=== PATIENT | male | born 1960 | race Caucasian/White ===

== ENCOUNTER 2018-11-01 10:20 | Outpatient (CLI) | payer MEDICAID, SELFPAY ==
--- NOTE | 2018-11-01 13:55 | DI.RAD_ITS ---
SYMPTOMS/DIAGNOSIS: COUGH X 1 MO AND WHEEZING, R05 CHEST X-RAY, PA AND LATERAL: Comparison is 09/13/17. The heart is normal in size. The lungs are clear. The mediastinal structures and pleura appear intact. IMPRESSION: Normal chest.
== END 2018-11-01 10:40 ==
PROVIDERS: PCP Internal Medicine; Visit Provider Nurse Practitioner Family
DX: R05 Cough (principal); R06.2 Wheezing
CPT/HCPCS: 71046

== ENCOUNTER 2018-12-12 16:27 | Outpatient (REF) | payer MEDICAID, SELFPAY ==
[2018-12-12 20:55] LABS: BUN 14 mg/dL (7-18); CREATININE 1.23 mg/dL (0.70-1.30)
== END 2018-12-12 16:47 ==
LOC: NCHCN 16:27
PROVIDERS: PCP Internal Medicine; Visit Provider Internal Medicine
DX: J02.9 Acute pharyngitis, unspecified (principal)
CPT/HCPCS: 84520; 82565

== ENCOUNTER 2018-12-16 00:37 | Outpatient (CLI) | payer MEDICAID, SELFPAY ==
[2018-12-16] MEDS: Omnipaque 350 MG/ML 100 ML BTL IJ (10:46)
--- NOTE | 2018-12-16 10:52 | DI.CT_ITS ---
SYMPTOMS/DIAGNOSIS: PAROTID GLAND SWELLING, K11.8, NECK PAIN RT, M54.2, CHRONIC NECK PAIN, FULLNESS BOTH PAROTID AREA AND MIDLINE OF NECK NECK CT: Images were performed after IV contrast. There is bilateral symmetric diffuse bilateral parotid enlargement. Both parotid glands appear somewhat fatty replaced. There is no focal mass, lipoma or evidence of adenopathy. There is no evidence of inflammation, cyst or mass. The submandibular and thyroid glands are unremarkable. There are mild degenerative changes of the cervical spine. The lung apices appear clear. There is mild mucous retention in a few ethmoid air cells. The mastoid air cells are clear. The orbits are unremarkable. There is calcification at the right common carotid bulb but no significant stenosis or significant plaque. IMPRESSION: Mild symmetric bilateral parotid enlargement with fatty infiltration. No evidence of mass, adenopathy or inflammatory changes.
== END 2018-12-16 00:57 ==
PROVIDERS: PCP Internal Medicine; Visit Provider Internal Medicine
DX: K11.1 Hypertrophy of salivary gland (principal); R22.1 Localized swelling, mass and lump, neck; M54.2 Cervicalgia
CPT/HCPCS: 70491; J3490

== ENCOUNTER 2019-01-08 14:20 | Outpatient (REF) | payer MEDICAID, SELFPAY ==
[2019-01-08 22:06] LABS: Iron 104 ug/dL (50-175)
[2019-01-08 22:17] LABS: TSH 2.08 uIU/mL (0.358-3.74)
== END 2019-01-08 14:40 ==
LOC: NCHCN 14:20
PROVIDERS: PCP Internal Medicine; Visit Provider Internal Medicine
DX: K11.8 Other diseases of salivary glands (principal)
CPT/HCPCS: 83540; 84443

== ENCOUNTER 2019-06-10 09:17 | Outpatient (REF) | payer MEDICAID, SELFPAY ==
[2019-06-10 12:27] LABS: Ferritin 154 ng/mL (8-388)
== END 2019-06-10 09:37 ==
LOC: NCHCN 09:17
PROVIDERS: PCP Internal Medicine; Visit Provider Internal Medicine
DX: M25.50 Pain in unspecified joint (principal)
CPT/HCPCS: 82728

== ENCOUNTER 2019-09-01 07:15 | Day surgery (SDC) | payer MEDICAID, SELFPAY ==
--- NOTE | 2019-09-01 06:43 | W.COLOREPORT ---
Date of service: 09/01/19 Time of Service: 08:34 Colonoscopy Report Date of procedure: 09/01/19 Pre-op diagnosis general: Hx of colon polyps Post-op diagnosis procedure note: same Procedure: Colonoscopy with polypectomy Surgeon: Rayna Najera Anesthesia proc note operative: other (General/ ASA 2/Sheila Atkins, BRIELLE ) Estimated blood loss (mL): 3 Pathology: other (Rectal polyp x3, ascending polyp x3, cecal polyp) Complications: None Disposition: same day Indications: 58 y/o male with history of HTN presents for colonoscopy screening pre-op. His last screening was in 2015 , which was remarkable for tubular adenoma x 2 and tubulovillious x1. He denies a family history of colon cancer. He denies any changes in bowel habits including bloody or black tarry stools, abdominal pain, diarrhea or constipation. Risks, benefits and complications have been reviewed. Complications include but are not limited to bleeding, pain, perforation, missed small lesion/polyp, sore throat, aspiration and adverse reaction to the medications. Questions were entertained and answered to their satisfaction and they wished to proceed. No guarantees were given or implied. Prep: Miralax/Dulcolax Procedure Start Time: :34 Procedure End Time: 09:01 Retraction Time: 19 minutes Findings: 7 polyps- grossly adenomatous polyps Procedure Description: After informed consent was obtained the patient was taken to the procedure room and placed in a left decubitous position. Monitors were applied and a time out was done. The patients name, date of , procedure, allergies to medications and metal in their body was reviewed. The patient was then sedated. Once sedated and comfortable a rectal exam was done. External exam was normal. Internal exam revealed a normal sphincter tone and no palpable masses. The prostate felt smooth. The scope was then introduced and retro-flexed. No internal hemorrhoids, masses or polyps were identified on retro-flexion. The scope was then advanced to the cecum without difficulty. The TI and appendiceal orifice were identified. The prep was good. The scope was then slowly retracted over 19 minutes back into the rectum. Polyps were removed with cold forceps in the cecum x1, ascending colon x3 and rectum x3. The scope was removed and the patient was woken up and taken back to Same day surgery in stable condition. The patient tolerated the procedure well and there were no immediate complications. Follow up: The patient should follow up in 3 years unless they develop changes in bowel habits or other new gastrointestinal complaints.
--- NOTE | 2019-09-01 06:44 | W.PM.DSUDISC ---
Discharge Plan Disposition Patient Disposition: HOME Condition: Good Discharge Details Reason For Visit: hx of polyps Attending Provider: Rayna Najera Primary Care Provider: Ki Barnes Home Meds and New Rx's Prescriptions: Continued gabapentin 300 mg capsule 600 mg PO QHS RF: 0 ropinirole 1 mg tablet 1 mg PO QHS RF: 0 ibuprofen 200 MG capsule 400 - 600 mg PO PRN PRNRF: 0 acetaminophen [Mapap Extra Strength] 500 MG tablet 2 tab PO HS RF: 0 simvastatin 20 MG tablet 20 mg PO HS RF: 0 lisinopril 10 MG tablet 10 mg PO DAILY RF: 0 diltiazem HCl [Taztia XT] 120 mg Capsule,Extended Release 24 Hr 120 mg PO HS RF: 0 Discontinued polyethylene glycol 3350 17 gram/dose powder 238 g PO ONCE Qty: 238 RF: 0 bisacodyl [Dulcolax (bisacodyl)] 5 mg tablet,delayed release (DR/EC) 5 mg PO ONCE Qty: 4 RF: 0 Discharge Instructions Instructions: Colorectal Polyps (DC) Additional Instructions: Findings: 6 polyps Follow up: most likely 3 years Please call if you develop: fevers >101.5 Nausea or Vomiting Abdominal pain that is not transient DAY SURGERY UNIT POST ENDOSCOPY INSTRUCTIONS 1. Because there will be medication in your system for the next 24 hours, you may feel a little sleepy. Your coordination will be affected. Therefore: a. Do not drive or operate dangerous equipment for 24 hours. b. Do not drink alcohol beverages for 24 hours (not even beer). c. Plan to go home and rest for the day. 2. Generally there are no restrictions on your activity after a day or so has gone by, but you may feel a bit fatigued for a few days. 3 After you arrive home you may have a light meal and return to a normal diet as you can tolerate it without feeling sick to your stomach. 4. After surgery, you may feel pain or discomfort. This should be only transient, but if it persists please contact your doctor. 5. If there are any questions regarding the findings of your procedure, please feel free to contact your doctor. 6. If you are unable to contact your doctor with a problem, contact the hospital at [phone]. 7. Continue all your regular medications unless directed otherwise. I understand the above instructions and have no questions. Signature of Patient or Responsible Adult Escort Date/Time Name of Responsible Adult Escort Signature of Nurse Date/Time Activity:: Activity as Tolerated Diet:: As Tolerated Discharge Orders Discharge Orders: Discharge Order (Routine); Ordered 09/01/19 Ordered By: Rayna Najera DS: Diagnosis Discharge Diagnosis (1) Colorectal polyps: Status: Acute
[2019-09-01 07:32] VITALS: BP 119/78; PULSE 67; RESP 16; TEMP 36.7; O2SAT 95
[2019-09-01] MEDS: Lactated Ringers 1,000 ML 80 ML IV (08:01)
--- NOTE | 2019-09-01 08:35 | BOWEL_PTH ---
PATIENT: Osmar Clifford LOC: [facility] U#:[id number] AGE/SX: 58/M ROOM: RE09/01/[address]: Rayna Najera MD : 1960 BED: DIS: 09/01/2019 SPEC #: [id number] RECD: 09/01/19 12:42 STATUS: GLADIS REQ #: [id number] GUNNAR: 09/01/19 08:[address]: Rayna Najera DEPT: Surgical Specimen RECD BY: Leida Goldsmith ENTERED: 09/01/19 12:46 SP TYPE: Bowel OTHR DR: Ki Barnes Tissues: 1 - BIOPSY BOWEL 2 - BIOPSY BOWEL 3 - BIOPSY BOWEL 4 - BIOPSY BOWEL Procedures: GROSS AND MICRO LEVEL 4 Comments: [id number]
[2019-09-01 09:47] VITALS: BP 108/71; PULSE 62; RESP 16; TEMP 36.3; O2SAT 96
== END 2019-09-01 10:18 | disposition home or self-care (01) ==
PROVIDERS: PCP Internal Medicine; Visit Provider Surgery
PROC: 0DJD8ZZ Inspection of Lower Intestinal Tract, Via Natural or Artificial Opening Endoscopic (ICD-10-PCS; CPT 45378; principal; 2019-09-01 08:30)
DX: Z12.11 Encounter for screening for malignant neoplasm of colon (principal); D12.2 Benign neoplasm of ascending colon; D12.0 Benign neoplasm of cecum; D12.8 Benign neoplasm of rectum; K62.1 Rectal polyp; Z86.010 Personal history of colon polyps; I10 Essential (primary) hypertension; G47.33 Obstructive sleep apnea (adult) (pediatric)
CPT/HCPCS: 45380; 88305; J2001; J2704

== ENCOUNTER 2020-04-01 08:18 | Outpatient (REF) | payer MEDICAID, SELFPAY ==
[2020-04-01 20:34] LABS: HCT 42.7 % (40.0-50.0); HGB 14.4 g/dL (13.5-17.5); MCH 29.4 pg (27.0-33.0); MCHC 33.7 % (32.0-36.0); MCV 87.1 fL (80-95); MPV 10.9 fL (8.0-11.0); Platelet Count 192 10^3/uL (130-400); RDW 13.2 % (11.8-14.1)
[2020-04-01 21:03] LABS: Anion Gap 11.5 mmol/L (3-11); BUN 26 mg/dL (7-18); CO2 24.5 mmol/L (21.0-32.0); CREATININE 1.03 mg/dL (0.70-1.30); Chloride 109 mmol/L (98-107); Cholesterol 176 mg/dL (<200); Glucose 97 mg/dL (74-106); HDL Cholesterol 25 mg/dL (40-60); Potassium 3.7 mmol/L (3.5-5.1); Sodium 145 mmol/L (136-145); Triglyceride 433 mg/dL (<150)
[2020-04-01 21:41] LABS: LDL CHOLESTEROL 89 mg/dL (<100)
== END 2020-04-01 08:38 ==
LOC: NCHCN 08:18
PROVIDERS: PCP Internal Medicine; Visit Provider Internal Medicine
DX: I10 Essential (primary) hypertension (principal); E78.5 Hyperlipidemia, unspecified; R53.83 Other fatigue
CPT/HCPCS: 80048; 80061; 83721; 85027

== ENCOUNTER 2021-03-23 02:15 | Outpatient (CLI) | payer MEDICAID, SELFPAY ==
--- NOTE | 2021-03-23 | DI.CT_ITS ---
Exam(s) CT FACIAL W EXAM: CT FACIAL W CLINICAL HISTORY: FACIAL EDEMA, R60.0. TECHNIQUE: Imaging Protocol: Axial computed tomography images with coronal and sagittal reformatted images were created and reviewed. No IV contrast COMPARISON: No exams were available for comparison FINDINGS: MAXILLOFACIAL CT SCAN: There is no evidence of facial fractures nor fluid the visualized paranasal sinuses. There is no haris dence of orbital blowout fracture. There is mild mucosal thickening floor left maxillary sinus not associated with a fluid level. No ot her significant paranasal sinus findings and there is also no abnormality evident in mastoid air cell s nor in middle ear cavities. Orbits: No significant findings: Parotid glands: No masses. No calculi. Submandibular glands: Unremarkable. Platysma muscle: Unremarkable Lymph nodes: No significant adenopathy in the neck. Facial soft tissue: Some symmetrically increased density in the subcutaneous soft tissues both suprao rbital regions, medially. IMPRESSION: No evidence of facial bone fractures nor orbital fractures. Mild symmetrical increased density in subcutaneous tissues just above the orbits. No distinct mass. No fluid collection. RADIATION DOSE DELIVERED: 832.29mGy.cm Total DLP DATA REPOSITORY: All CT scans at this facility are submitted to the National Radiology Data Registry (NRDR) Dose Index Registry (DIR) with the [employer] (A[employer]). RADIATION OPTIMIZATION: All CT scans at this facility use at least one of these dose optimization te chniques: automated exposure control; mA and/or kV adjustment per patient size (includes targeted exa ms where dose is matched to clinical indication); or iterative reconstruction.
== END 2021-03-23 02:35 ==
PROVIDERS: PCP Internal Medicine; Visit Provider Family Medicine
DX: R60.0 Localized edema (principal); L98.8 Other specified disorders of the skin and subcutaneous tissue
CPT/HCPCS: 70487; 82565

== ENCOUNTER → 2022-05-15 02:10 | Outpatient (CLI) | payer MEDICAID, SELFPAY ==
--- NOTE | 2022-05-15 07:45 | DI.MRI_ITS ---
Exam(s) MR LUMBAR SPINE WO EXAM: MR LUMBAR SPINE WO CLINICAL HISTORY: s/p L3-5 fusion; increased LBP and bilateral hip pAIN,LUMBAR STENOSIS,. TECHNIQUE: Multiplanar multisequence MRI of the Lumbar spine was performed. COMPARISON: MR MRI - LUMBAR SPINE WO CONTRAST from 05/22/2014 FINDINGS: Bones: There has been laminectomy with posterior fusion with hardware in place spanning from L3 throu gh L5. This creates some degree of artifact. The last intervertebral disc space is designated the L 5/S1 level for the numbering purpose of this examination. The vertebral body heights are well maint ained. Alignment is satisfactory. The marrow signal characteristics are unremarkable. Cord: The conus tip ends at the T12 level. It is of normal size and signal intensity. T12-L1: No disc herniations or bulges are present. No central spinal canal or neural foraminal stenos is. L1-2: Severe loss of disc height. Endplate osteophytes.. Disc bulging mainly laterally. Moderate t o severe bilateral neural foraminal narrowing. No central canal stenosis. L2-3: Severe loss of disc height and endplate osteophytes. Concentric disc bulging. Severe bilateral neural foraminal narrowing. Moderate central canal stenosis. L3-4: No disc herniations or bulges are present. No central spinal canal or neural foraminal stenosis . L4-5: No disc herniations or bulges are present. No central spinal canal or neural foraminal stenosis . L5-S1: Mild disc bulging. Facet degenerative changes causing mild bilateral neural foraminal narrowi ng. No central spinal canal or neural foraminal stenosis. The visualized SI joints and sacrum are well maintained. Soft tissues: The paraspinal soft tissues are unremarkable. IMPRESSION: Degenerative disc changes at L1-2, L 2-3 and L5-S1. The findings are greatest at L2-3 where there is moderate central canal stenosis and severe bilateral neural foraminal narrowing. Posterior fusion from L3 through L5. DATA REPOSITORY:
== END ==
PROVIDERS: PCP Family Medicine; Visit Provider Psychiatry & Neurology Neurology
DX: M48.061 Spinal stenosis, lumbar region without neurogenic claudication (principal); M54.59 Other low back pain; M25.551 Pain in right hip; M25.552 Pain in left hip; M51.37 Other intervertebral disc degeneration, lumbosacral region; Z98.1 Arthrodesis status
CPT/HCPCS: 72148

== ENCOUNTER 2022-11-15 11:30 | Outpatient (CLI) | payer MEDICAID, SELFPAY ==
[2022-11-15 08:44] LABS: HCT 42.4 % (40.0-50.0); HGB 14.8 g/dL (13.5-17.5); MCH 29.9 pg (27.0-33.0); MCHC 34.9 % (32.0-36.0); MCV 86 fL (80-95); MPV 10.1 fL (8.0-11.0); Platelet Count 184 10^3/uL (130-400); RBC 4.95 10^6/uL (4.36-5.78); RDW 13.3 % (11.8-14.1); RDW-SD 41.4 fL; WBC 5.97 10^3/uL (4.4-10.8)
[2022-11-15 10:15] LABS: ALT 35 U/L (16-63); AST 24 U/L (15-37); Albumin 3.9 g/dL (3.4-5.0); Alkaline Phosphatase 112 U/L (46-116); Anion Gap 7.9 mmol/L (3-11); BUN 23 mg/dL (7-18); Bilirubin, Total 0.9 mg/dL (0.2-1.0); CO2 27.1 mmol/L (21.0-32.0); CREATININE 1.2 mg/dL (0.70-1.30); Calcium 8.7 mg/dL (8.5-10.1); Calculated LDL 81 mg/dL (<100); Chloride 106 mmol/L (98-107); Cholesterol 178 mg/dL (<200); Estimated GFR 68.38 (mL/min/1.73m2); Glucose 99 mg/dL (74-106); HDL Cholesterol 35 mg/dL (40-60); Potassium 3.6 mmol/L (3.5-5.1); Sodium 141 mmol/L (136-145); Triglyceride 313 mg/dL (<150)
== END 2022-11-15 11:31 | disposition home or self-care (01) ==
LOC: LBO 11:31
PROVIDERS: PCP Family Medicine; Visit Provider Family Medicine
DX: I10 Essential (primary) hypertension (principal); E78.5 Hyperlipidemia, unspecified; J45.20 Mild intermittent asthma, uncomplicated; M54.59 Other low back pain
CPT/HCPCS: 36415; 80053; 80061; 85027

== ENCOUNTER 2022-11-27 09:02 | Day surgery (SDC) | payer MEDICAID, SELFPAY ==
--- NOTE | 2022-11-26 19:51 | W.PM.DSUDISC ---
Date of service: 11/27/22 Time of Service: 10:17 Discharge Plan Disposition Patient Disposition: Home Condition: Good Discharge Details Reason For Visit: Screening colonoscopy Attending Provider: Benja Noriega Primary Care Provider: Ajit Cespedes Home Meds and New Rx's Prescriptions: Continued ropinirole 1 mg tablet 1 mg PO QHS diphenhydramine-acetaminophen [Tylenol PM Extra Strength] 25-500 mg tablet 2 tab PO QHS PRN melatonin 10 mg capsule 20 mg PO HS gabapentin 600 mg tablet See Rx Instructions PO .COMPLEX Qty: 270 3RF Rx Instructions: Take gabapentin 600mg at 6pm and 1200mg at 9pm orally; albuterol sulfate 90 mcg/actuation HFA aerosol inhaler 2 puff inhalation 6XD ibuprofen 200 MG capsule 400 - 600 mg PO PRN PRN acetaminophen [Mapap Extra Strength] 500 MG tablet 2 tab PO HS simvastatin 20 MG tablet 20 mg PO HS diltiazem HCl [Taztia XT] 120 mg Capsule,Extended Release 24 Hr 120 mg PO HS Patient Comments: 09/01/19 pt states he hasn't taken for a while. Discontinued bisacodyl [Dulcolax (bisacodyl)] 5 mg tablet,delayed release (DR/EC) 5 mg PO ONCE Qty: 4 0RF Rx Instructions: Take according to provider's instructions for colonoscopy prep. polyethylene glycol 3350 17 gram/dose powder 17 g PO ONCE Qty: 238 0RF Rx Instructions: To be taken as directed by prescriber's office for colonoscopy prep. Discharge Instructions Additional Instructions: 1. If tolerated, consume a soft, low fiber diet for 1-2 days. 2[address] Do not drive, drink alcohol, operate machinery, make critical decisions, or do activities that require coordination or balance for 24 hours. 3. Because air was put into your colon during the procedure, expelling air from your rectum (passing gas or farting) is normal. 4. You may not have a bowel movement for 1-3 days because of the colonoscopy prep. This is normal. 5. Go directly to the emergency room if you notice any of the following: Develop chills (warm to touch), or if you have a thermometer and your temperature is above 101 Difficulty breathing or difficultly swallowing Persistent vomiting Severe abdominal pain, other than gas cramps Severe chest pain Black, tarry stools Any bleeding ? exceeding one tablespoon 6. Call your physician if the site where your intravenous was started becomes red, swollen, painful, and warm to touch. 7. Your physician has reviewed your pre-procedure medications. Please continue to take those medications as previously ordered. You will be given specific information/education regarding any changes to your medications before leaving. Activity:: Activity as Tolerated Diet:: As Tolerated Discharge Orders Discharge Orders: Discharge Order (Routine); Ordered 11/26/22 Ordered By: Benja Noriega DS: Diagnosis Discharge Diagnosis (1) Screening for colon cancer: Status: Acute Asessment and Plan: Follow-up on polypectomy results
--- NOTE | 2022-11-26 19:53 | W.COLOREPORT ---
Date of service: 11/27/22 Time of Service: 10:20 Colonoscopy Report Date of procedure: 11/27/22 Pre-op diagnosis general: Screening colonoscopy Post-op diagnosis procedure note: other (Colon polyp at 65 cm, diverticulosis) Procedure: Colonoscopy with polypectomy Surgeon: Benja Noriega Anesthesia Type: General:No Airway Estimated blood loss (mL): 5 Pathology: other (Colon polyp at 65 cm) Complications: None Disposition: same day Indications: Osmar is a 62 year old man with a history of colon polyps who is following up for his next colonscopy Prep: Miralax/Dulcolax Procedure Start Time: 09:55 Procedure End Time: 10:10 Retraction Time: 11 Findings: Rare sigmoid diverticulosis, colon polyp at 65 cm Procedure Description: After the induction of monitored anesthetic care, and with the patient in left lateral decubitus position, I began by performing an external anorectal exam.? Perineum and skin were normal, as was the anal verge.? There was no evidence of external hemorrhoids.? Next, I performed a digital rectal exam.? I did not appreciate any abnormal findings.? Next, I advanced a colonoscope into the rectal vault.? I performed retroflexion.? This was normal.? Using insufflation, I then advanced the colonoscope beyond the rectal folds and into the sigmoid colon before advancing towards the cecum.? There was rare sigmoid diverticulosis. The quality of the prep was excellent.? The scope was noted to be in the cecum by identification of the ileocecal valve and appendiceal orifice.? I then began withdrawing the colonoscope using repeated irrigation as necessary for full evaluation of the colonic mucosa. Around 65 cm from the anal verge I identified a 0.5 cm polyp. ?It appeared sessile in character. ?I was able to remove this with a cold forcep polypectomy. ?I examined the site, and there was minimal bleeding. ?Once this was completed, I continued to withdraw the scope and examine the remainder of the colonic mucosa.?Once the scope was withdrawn to the level of the rectum, great care was taken to examine portions of the rectal folds.? Finally, the scope was withdrawn and the patient was brought to the same-day surgery recovery unit as the anesthetic wore off. ?The findings and instructions were shared with the patient prior to discharge.
[2022-11-27 09:05] VITALS: BP 150/101; PULSE 71; RESP 16; TEMP 36; O2SAT 98
--- NOTE | 2022-11-27 09:26 | ANES.PREOP_ITS ---
General Info Date of Service Date Performed: 11/27/22 Height: 5 ft 8 in Weight: 105.6 kg Body Mass Index (BMI): 35.4 Surgical Procedure: Operation Date: 11/27/22 10:20 Proposed Procedure Side Surgeon michel Noriega MD Meds Allergies and Home Medications Allergies Allergy/AdvReac Type Severity Reaction Status Date / Time benzonatate Allergy Mild unknown Verified 11/27/22 09:16 fluticasone Allergy Mild unknown Verified 11/27/22 09:16 [From Advair Diskus] salmeterol Allergy Mild unknown Verified 11/27/22 09:16 [From Advair Diskus] Home Medication Medication Instructions Recorded acetaminophen 500 mg tablet (Mapap 2 tab PO HS 03/21/16 Extra Strength) ibuprofen 200 mg capsule 400 - 600 mg PO PRN PRN 03/21/16 simvastatin 20 mg tablet 20 mg PO HS 03/21/16 ropinirole 1 mg tablet 1 mg PO QHS 07/01/19 diltiazem HCl 120 mg capsule,24 120 mg PO HS 08/29/19 hr,extended release (Taztia XT) albuterol sulfate 90 mcg/actuation 2 puff inhalation 6XD 11/28/21 aerosol inhaler diphenhydramine 25 2 tab PO QHS PRN 05/03/22 mg-acetaminophen 500 mg tablet (Tylenol PM Extra Strength) gabapentin 600 mg tablet See Rx Instructions PO .COMPLEX 05/03/22 #270 tabs melatonin 10 mg capsule 20 mg PO HS 05/03/22 Current Visit Medications: Current Medications Generic Name Dose Route Start Last Admin Trade Name Freq PRN Reason Stop Dose Admin Hyoscyamine Sulfate 0.125 mg 11/26/22 19:55 Hyoscyamine 0.125 Mg Sl/Oral/Chew SL DIRECTED PRN Ringer's Solution 1,000 mls @ 80 mls/hr 11/27/22 06:00 IV 11/27/22 23:59 INFUSION [facility] IV Miscellaneous Supplies 1 each 11/27/22 06:00 Iv Access IV 11/27/22 23:59 DIRECTED [facility] Ondansetron HCl 4 mg 11/26/22 19:55 Ondansetron 4 Mg/2 Ml Vial IVP Q4H PRN PRN Nausea / Vomiting Sodium Chloride 0 ml 11/27/22 06:00 Normal Saline Flush 10 Ml Syr IV 11/27/22 23:59 PRN PRN Sodium Chloride 0 ml 11/27/22 06:00 Normal Saline 10 Ml Vial IJ 11/27/22 23:59 DIRECTED PRN Sterile Water 0 ml 11/27/22 06:00 Water,Injection,Sterile 10 Ml Vial IJ 11/27/22 23:59 DIRECTED PRN PFSH Active Problems Active Problems: Problem Status Onset Code Lumbar stenosis M48.061 Asthma J45.909 Screening for colon cancer Z12.11 Colorectal polyps K63.5 Globus sensation R09.89 Parotid gland fullness K11.8 Fatigue R53.83 Paresthesia R20.2 Dyslipidemia E78.5 Intermittent asthma J45.20 Medical History Medical History Acne rosacea Adenomatous polyps Back pain Hx of adenomatous colonic polyps Hypertension Insomnia due to back pain Low back pain Numbness of left foot ALEX (obstructive sleep apnea) Surgical History Surgical History Colonoscopy - IV Sedation (09/01/19) 09/01/2019 - tubular adenoma x5. Tubulovillous adenoma x1 03/11- 2 adenomatous polyps History of mandibular surgery 1990 TMJ surgery. History of tonsillectomy Spinal Fusion L2-3/L3-4 TMJ surgery Tobacco Smoking/Tobacco Use Status: Former Tobacco Use Alcohol Alcohol Intake: current Alcohol intake frequency: a few times a month Alcohol type: beer Substance Use Substance use: Never Substance use type: other Details: pt occasionally uses CBD products Vital Signs and Lab Results Vital Signs Most Recent Vital Signs in EMR: Most Recent Vital Signs Temp Pulse Resp BP Pulse Ox 36.0 C L 71 16 150/101 H 98 11/27/22 09:19 11/27/22 09:19 11/27/22 09:19 11/27/22 09:19 11/27/22 09:19 Lab Results Blood Type / Crossmatch: No Data to Display Complete Blood Count: White Blood Count 5.97 10^3/uL (4.4-10.8) 11/15/22 08:24 Red Blood Count 4.95 10^6/uL (4.36-5.78) 11/15/22 08:24 Hemoglobin 14.8 g/dL (13.5-17.5) 11/15/22 08:24 Hematocrit 42.4 % (40.0-50.0) 11/15/22 08:24 Platelet Count 184 10^3/uL (130-400) 11/15/22 08:24 Complete Metabolic Panel: Sodium 141 mmol/L (136-145) 11/15/22 08:24 Potassium 3.6 mmol/L (3.5-5.1) 11/15/22 08:24 Chloride 106 mmol/L (98-107) 11/15/22 08:24 Carbon Dioxide 27.1 mmol/L (21.0-32.0) 11/15/22 08:24 BUN 23 mg/dL (7-18) H 11/15/22 08:24 Creatinine 1.2 mg/dL (0.70-1.30) 11/15/22 08:24 Est GFR (CKD-EPI 2020) 68.38 (mL/min/1.73m2) 11/15/22 08:24 Calcium 8.7 mg/dL (8.5-10.1) 11/15/22 08:24 Albumin 3.9 g/dL (3.4-5.0) 11/15/22 08:24 Glucose 99 mg/dL (74-106) 11/15/22 08:24 Liver Function Panel: Alanine Aminotransferase (ALT/SGPT) 35 U/L (16-63) 11/15/22 08: 24 Aspartate Amino Transf (AST/SGOT) 24 U/L (15-37) 11/15/22 08:24 Coagulation Panel: No Data to Display Cardiac Panel: No Data to Display Arterial Blood Gas: No Data to Display Venous Blood Gas: No Data to Display Pancreas Panel: No Data to Display Thyroid Panel: No Data to Display Infectious Disease: No Data to Display Blood Cultures: No Data to Display Toxicology Panel: No Data to Display Anesthesia Assessment and Plan Anesthesia History Personal History: No History of Anesthesia Complications Family History: No Family History of Anesthesia Complications Exercise Tolerance Exercise Tolerance: Metabolic Equivalents>4 Pertinent Negatives Pertinent Negatives: No Symptoms of GERD, No Major Cardiovascular Symptoms or Complaints, No Major Pulmonary Symptoms or Complaints and No History of CVA/TIA Cardiac & Pulmonary Exam Cardiac Exam: Normal S1/S2 Heart Sounds Pulmonary Exam: Clear Bilateral Breath Sounds Implantable Cardiac Device Does patient have a Pacemaker or an ICD?: No Airway Exam Known Difficult Airway: No Mallampati Class: 3 Mouth Opening: Narrow (< 3cm) (surgery on bilateral jaws, limited mouth opening) Thyromental Distance: Greater than 3 cm Neck Range of Motion: Full ROM Neck Circumference: Normal Teeth Condition: Normal Dentition ASA Classification ASA Score: ASA 2 Emergency Case?: No NPO Status NPO Status: NPO Clears >2 hours, Solids >8 hours Anesthesia Plan Resuscitation Status: Full Code Anesthesia Technique: General Anesthesia Airway Planned: Natural Airway Monitors Used: Standard Monitors
[2022-11-27] MEDS: Lactated Ringers 1,000 ML 80 ML IV (09:30)
[2022-11-27 09:50] VITALS: BMI 35.4
--- NOTE | 2022-11-27 10:05 | BOWEL_PTH ---
PATIENT: Osmar Clifford LOC: [facility] U#:[id number] AGE/SX: 62/M ROOM: RE11/27/[address]: Benja Noriega MD : 1960 BED: DIS: 11/27/2022 SPEC #: [id number] RECD: 11/27/22 12:57 STATUS: GLADIS REQ #: [id number] GUNNAR: 11/27/22 10:[address]: Benja Noriega DEPT: Surgical Specimen RECD BY: Leida Goldsmith ENTERED: 11/27/22 12:57 SP TYPE: Bowel OTHR DR: Ajit Cespedes Tissues: 1 - BIOPSY BOWEL Procedures: GROSS AND MICRO LEVEL 4 Comments: [id number]
[2022-11-27 10:15] VITALS: BP 139/92; PULSE 72; RESP 18; TEMP 36.4; O2SAT 96
[2022-11-27 10:45] VITALS: BP 129/78; PULSE 71; RESP 16; TEMP 36.8; O2SAT 94
--- NOTE | 2022-11-27 11:49 | W.ANESPOSTOP ---
Postoperative Evaluation Date, Time and Location Date Performed: 11/27/22 Time Performed: 10:45 Patient Location: Day Surgery Unit Vital Signs Most Recent Imported Vital Signs: Most Recent Vital Signs Temp Pulse Resp BP Pulse Ox 36.8 C 71 16 129/78 94 11/27/22 10:45 11/27/22 10:45 11/27/22 10:45 11/27/22 10:45 11/27/22 10:45 Pain Score Most Recent Pain Score: Most Recent Pain Score Pain Level 0 11/27/22 10:45 Assessment Mental Status: Awake (Alert & Oriented to Patient Baseline) Airway and Respiratory Function: Patent airway with normal (patient baseline) respiratory exam Cardiovascular Function: Hemodynamically Stable Hydration Status: Adequately Hydrated Nausea & Vomiting: No Nausea or Vomiting Pain: Pt. Denies Any Pain Peripheral Nerve Block: Patient did not receive a nerve block
== END 2022-11-27 10:55 | disposition home or self-care (01) ==
PROVIDERS: PCP Family Medicine; Visit Provider Surgery
PROC: 0DJD8ZZ Inspection of Lower Intestinal Tract, Via Natural or Artificial Opening Endoscopic (ICD-10-PCS; CPT 45378; principal; 2022-11-27 10:15)
DX: Z12.11 Encounter for screening for malignant neoplasm of colon (principal); K63.5 Polyp of colon; K57.30 Diverticulosis of large intestine without perforation or abscess without bleeding; Z86.010 Personal history of colon polyps
CPT/HCPCS: 45380; 88305

== ENCOUNTER 2023-03-13 10:38 | Outpatient (CLI) | payer MEDICAID, SELFPAY ==
--- NOTE | 2023-03-13 08:39 | DI.RAD_ITS ---
Exam(s) XR WRIST RT COMPLETE EXAM: XR WRIST RT COMPLETE CLINICAL HISTORY: RT WRIST PAIN, M25.531. TECHNIQUE: 2D digital imaging was performed of the right wrist. Four views were obtained. Scaphoid, PA, lateral and oblique views were obtained. COMPARISON: No exams were available for comparison FINDINGS: BONES: No acute fracture is present. No bony destructive lesion is seen. JOINTS: The carpal bones are normally aligned. SOFT TISSUE: Normal. IMPRESSION: Unremarkable radiographs of the right wrist. DATA REPOSITORY: RADIATION DOSE DELIVERED:
== END 2023-03-13 10:58 ==
LOC: DI 10:41
PROVIDERS: PCP Family Medicine; Visit Provider Nurse Practitioner Family
DX: M25.531 Pain in right wrist (principal)
CPT/HCPCS: 73110

== ENCOUNTER → 2023-06-07 00:11 | Outpatient (CLI) | payer MEDICAID, SELFPAY ==
--- NOTE | 2023-06-07 06:00 | DI.MRI_ITS ---
Exam(s) MR UPPER JOINT RT WO EXAM: MR UPPER JOINT RT WO CLINICAL HISTORY: rt wrist pain,de quervains tenosynovitis,m65.4. TECHNIQUE: Multiplanar multisequence MRI was performed. COMPARISON: None. FINDINGS: BONES: There is no fracture or contusion pattern. Small subchondral cysts are seen at the proximal po le of the scaphoid and the proximal lunate. There is also mild subchondral edema and cysts seen in t he radial side of the radiocarpal joint. JOINTS: Mild degenerative changes are seen at the radiocarpal joint. The carpal joints are unremarka ble. TENDONS: Flexors: Unremarkable. Extensors: There is some fluid seen within the tendon sheath of the 1st dorsal compartment containing the abductor pollicis longus and extensor pollicis brevis tendons. There is thickening of each of t hese tendons and mild increased signal. The abnormal signal begins at the level of the radial styloi d and extends distally. The remaining extensor tendon compartments are unremarkable. MUSCLES: Unremarkable. MEDIAN NERVE: Unremarkable on this noncontrast examination. ULNAR NERVE: Unremarkable on this noncontrast examination. SOFT TISSUES: Unremarkable. LIGAMENTS: Unremarkable. TRIANGULAR FIBROCARTILAGE: Unremarkable. OTHER: IMPRESSION: 1. Small amount of fluid seen within the tendon sheath of the 1st dorsal extensor compartment with mi ld increased signal of the tendons of the abductor pollicis longus and extensor pollicis brevis muscl es. The findings would be consistent with de Quervain tenosynovitis. 2. Degenerative changes seen at the radiocarpal joint. DATA REPOSITORY:
== END ==
PROVIDERS: PCP Family Medicine; Visit Provider Student in an Organized Health Care Education/Training Program
DX: M65.4 Radial styloid tenosynovitis [de Quervain] (principal)
CPT/HCPCS: 73221

== ENCOUNTER 2023-11-15 14:20 | Outpatient (REF) | payer MEDICAID, SELFPAY ==
[2023-11-15 15:31] LABS: Abs Immature Grans 0.02 10^3/uL (0.0-0.06); Absolute Basophil Count 0.02 10^3/uL (0.0-0.2); Absolute Eosinophil Count 0.14 10^3/uL (0.0-0.7); Absolute Monocyte Count 0.52 10^3/uL (0.1-0.8); Absolute Neutrophil Count 3.14 10^3/uL (1.2-6.7); Basophils % 0.4; Eosinophils % 2.6; HCT 44.5 % (40.0-50.0); HGB 15.2 g/dL (13.5-17.5); Immature Grans % 0.4; Lymphocytes % 28.1; MCH 29.9 pg (27.0-33.0); MCHC 34.2 % (32.0-36.0); MCV 87 fL (80-95); MPV 10.9 fL (8.0-11.0); Monocytes % 9.7; Neutrophils % 58.8; Platelet Count 175 10^3/uL (130-400); RBC 5.09 10^6/uL (4.36-5.78); RDW 13.2 % (11.8-14.1); RDW-SD 42.5 fL; WBC 5.34 10^3/uL (4.4-10.8)
[2023-11-15 17:16] LABS: ALT 44 U/L (16-63); AST 23 U/L (15-37); Albumin 3.9 g/dL (3.4-5.0); Alkaline Phosphatase 98 U/L (46-116); BUN 22 mg/dL (7-18); Bilirubin, Total 0.8 mg/dL (0.2-1.0); CREATININE 1.3 mg/dL (0.70-1.30); Calcium 8.9 mg/dL (8.5-10.1); Calculated LDL 132 mg/dL (<100); Chloride 108 mmol/L (98-107); Cholesterol 233 mg/dL (<200); Estimated GFR 61.73 (mL/min/1.73m2); Glucose 102 mg/dL (74-106); HDL Cholesterol 35 mg/dL (40-60); Potassium 3.7 mmol/L (3.5-5.1); Sodium 144 mmol/L (136-145); Total Protein 7.1 g/dL (6.4-8.2); Triglyceride 331 mg/dL (<150)
== END 2023-11-15 14:21 | disposition home or self-care (01) ==
LOC: NCHCN 14:20
PROVIDERS: PCP Family Medicine; Visit Provider Family Medicine
DX: I10 Essential (primary) hypertension (principal); E78.5 Hyperlipidemia, unspecified
CPT/HCPCS: 80053; 80061; 85025

== ENCOUNTER 2024-11-10 13:32 | Outpatient (CLI) | payer MEDICAID, SELFPAY ==
--- NOTE | 2024-11-10 13:40 | DI.RAD_ITS ---
Exam(s) XR HIP PELVIS ADULT BL EXAM: XR HIP PELVIS ADULT BL CLINICAL HISTORY: BILAT HIP PAIN M25.551 M25.552 CHRONIC PAIN G89.29. TECHNIQUE: 2D digital imaging was performed. Three views. COMPARISON: No exams were available for comparison FINDINGS: BONES: No acute fracture is present. No bony destructive lesion is seen. Hardware in the lower lumb ar spine. Enthesophytes at the iliac wings. Small enthesophyte at the left greater trochanter. JOINTS: No dislocation present. Hip joint spaces are maintained. SI joints and pubic symphysis are u nremarkable. SOFT TISSUE: Normal. IMPRESSION: No acute abnormality. DATA REPOSITORY: RADIATION DOSE DELIVERED:
== END 2024-11-10 13:52 ==
LOC: DI 13:32
PROVIDERS: PCP Family Medicine; Visit Provider Nurse Practitioner Family
DX: M16.0 Bilateral primary osteoarthritis of hip (principal)
CPT/HCPCS: 73521

== ENCOUNTER 2024-11-14 00:20 | Outpatient (CLI) | payer MEDICAID, SELFPAY ==
[2024-11-14 12:50] LABS: Hemoglobin A1C 5.7 % (<5.7)
[2024-11-14 12:57] LABS: ALT 81 U/L (16-63); AST 41 U/L (15-37); Albumin 3.9 g/dL (3.4-5.0); Alkaline Phosphatase 99 U/L (46-116); Anion Gap 9.4 mmol/L (3-11); BUN 24 mg/dL (7-18); Bilirubin, Total 0.8 mg/dL (0.2-1.0); CO2 26.6 mmol/L (21.0-32.0); CREATININE 1.3 mg/dL (0.70-1.30); Calcium 8.7 mg/dL (8.5-10.1); Calculated LDL 134 mg/dL (<100); Chloride 108 mmol/L (98-107); Cholesterol 226 mg/dL (<200); Estimated GFR 61.35 (mL/min/1.73m2); Glucose 101 mg/dL (74-106); HDL Cholesterol 38 mg/dL (>or=40); Potassium 3.6 mmol/L (3.5-5.1); Sodium 144 mmol/L (136-145); Total Protein 6.8 g/dL (6.4-8.2); Triglyceride 274 mg/dL (<150)
== END 2024-11-14 00:21 | disposition home or self-care (01) ==
LOC: LOS 00:20
PROVIDERS: PCP Family Medicine; Visit Provider Nurse Practitioner Family
DX: E78.5 Hyperlipidemia, unspecified (principal); E66.9 Obesity, unspecified
CPT/HCPCS: 36415; 80053; 80061; 83036

== ENCOUNTER 2025-03-16 00:29 | Outpatient (CLI) | payer MEDICAID, SELFPAY ==
--- NOTE | 2025-03-16 07:10 | DI.US_ITS ---
Exam(s) US ABDOMEN LIMITED EXAM: US ABDOMEN LIMITED CLINICAL HISTORY: LIVER FUNCTION TESTS OUTSIDE REFERENCE RANGE, R94.5 TECHNIQUE: Ultrasound abdomen performed using standard protocol. COMPARISON: No exams were available for comparison FINDINGS: LIVER: Normal size. Increasedechogenicity, consistent with moderate hepatic steatosis. Small area of focal fatty sparing. No suspicious lesions are seen.. GALLBLADDER: No evidence of cholelithiasis. No evidence of wall thickening. No pericholecystic fluid identified. SALEEM'S SIGN: Negative. BILIARY SYSTEM: No intrahepatic or extrahepatic biliary ductal dilation. RIGHT KIDNEY: Normal size. No evidence of renal calculi. No evidence of hydronephrosis. No suspicious renal mass. No cyst identified. PANCREAS: Normal where visualized. ABDOMINAL AORTA AND IVC: Visualized portions normal caliber. ASCITES: None seen. IMPRESSION: Normal size liver with moderate hepatic steatosis. DATA REPOSITORY:
== END 2025-03-16 00:49 ==
PROVIDERS: PCP Family Medicine; Visit Provider Nurse Practitioner Family
DX: K76.0 Fatty (change of) liver, not elsewhere classified (principal)
CPT/HCPCS: 76705